=== PATIENT | male | born 1955 | race Caucasian/White ===

== ENCOUNTER 2017-08-21 12:41 | Emergency (ER) | payer MEDICAID ==
[~2017-08-21] VITALS: Ht 180.3 cm; Wt 110.1 kg
[~2017-08-21 12:41] MED LIST: ASPI-496 PO; ATOR40TA78 PO; GLIM1TAB2 PO; HYDR12.58 PO; INSU100V8 SQ; LISI-170 PO; LORA10TA3 PO; METF10002 PO
[2017-08-21] MEDS ORDERED: KETOROLAC 30 MG/1 ML ONE (13:21)
[2017-08-21] MEDS ORDERED: MORPHINE SULFATE 4 MG/ML, 1ML ONE ×2 (13:21→15:40)
[2017-08-21] MEDS ORDERED: ONDANSETRON 2MG/ML, 2ML ONE ×2 (13:22→14:23)
[2017-08-21] MEDS: MORPHINE SULFATE 4 MG/ML, 1ML IVPush PRN ×2 (13:23→15:45)
[2017-08-21] MEDS ORDERED: SODIUM CHLORIDE 0.9% 1,000ML IVBOLUS ONE (13:30)
[2017-08-21] MEDS ORDERED: ONDANSETRON 2MG/ML, 2ML IVPush ONE (13:30)
[2017-08-21] MEDS ORDERED: SODIUM CHLORIDE FLUSH 10ML SYR IVF ONE (13:30)
[2017-08-21 13:40] LABS: HEMATOCRIT 53.5 % (39.2-51.8); HEMOGLOBIN 17.5 g/dL (13.7-18.0); WHITE BLOOD COUNT 10.2 x10^3/uL (3.4-10)
[2017-08-21 13:47] LABS: ASPARTATE AMINO TRANSFERASE 83 U/L (15-37); BLOOD UREA NITROGEN 49 mg/dL (7-18)
[2017-08-21 15:45] VITALS: BP 106/73
== END 2017-08-21 16:26 | disposition home or self-care (01) ==
LOC: ED 14:36
DX: N39.0 Urinary tract infection, site not specified (principal); I10 Essential (primary) hypertension; E11.9 Type 2 diabetes mellitus without complications; F17.210 Nicotine dependence, cigarettes, uncomplicated; Z90.81 Acquired absence of spleen
CPT/HCPCS: 36415; 74176; 80053; 81001; 85025; 87077; 87086; 87186; 96361; 96374; 96375; 96376; 99285; J2405; J7030

== ENCOUNTER 2017-10-06 14:00 | Inpatient (IN) | payer MEDICAID ==
[~2017-10-06] VITALS: Ht 180.3 cm; Wt 112.1 kg
[~2017-10-06 14:00] MED LIST changes: +CETI10TA18 PO; +FLUT1BLS PO; +GABA300C10 PO; +INSU100I34 SQ-INSULIN; +IPRA12.9 PO; +LISI1TAB7 PO; +OMEG-72 PO; +TAMS-11 PO; +TRAZ50TA18 PO
[2017-10-06] MEDS ORDERED: LIDOCAINE 1%, 2ML ONE (14:42)
[2017-10-06] MEDS: LACTATED RINGERS 1,000 ML IV SCH ×2 (14:57→23:03)
[2017-10-06] MEDS ORDERED: LIDOCAINE 1%, 2ML SQ PRN (15:00)
[2017-10-06] MEDS ORDERED: PROPOFOL 10 MG/ML, 20ML ONE (15:38)
[2017-10-06] MEDS ORDERED: PHENYLEPHRINE 10 MG/ML ONE (15:41)
[2017-10-06] MEDS ORDERED: ALBUTEROL SULFATE 200 PUFFS/8.5 GR INH ONE (15:41)
[2017-10-06] MEDS ORDERED: FENTANYL PF 100 MCG/2ML ONE (15:43)
[2017-10-06] MEDS ORDERED: MIDAZOLAM 1 MG/ML, 2ML ONE (15:51)
[2017-10-06] MEDS ORDERED: EPHEDRINE 50 MG/ML, 1ML IVPush PRN (16:30)
[2017-10-06] MEDS ORDERED: OXYcodone 5 MG/5 ML ORAL.SOL UDC PO PRN (16:30)
[2017-10-06] MEDS ORDERED: HYDROcodone/APAP 7.5-325MG/15ML UDC PO PRN (16:30)
[2017-10-06] MEDS ORDERED: HYDROmorphone 1 MG/ML, 1ML IV PRN (16:30)
[2017-10-06] MEDS ORDERED: FENTANYL PF 100 MCG/2ML IV PRN (16:30)
[2017-10-06] MEDS ORDERED: LABETALOL 5MG/ML, 20ML IV PRN (16:30)
[2017-10-06] MEDS ORDERED: MEPERIDINE/PF 25MG/0.5ML IVPush PRN (16:30)
[2017-10-06] MEDS ORDERED: hydrALAzine 20 MG/ML, 1ML IV PRN (16:30)
[2017-10-06] MEDS ORDERED: ALBUTEROL SULFATE 2.5 MG/3 ML NPPB PRN (16:30)
[2017-10-06] MEDS ORDERED: PROMETHAZINE 25 MG/ML, 1ML IV PRN (16:30)
[2017-10-06] MEDS ORDERED: ALBUTEROL/IPRATROPIUM 2.5MG/0.5MG, 3 ML NPPB PRN (16:30)
[2017-10-06] MEDS ORDERED: KETOROLAC 30 MG/1 ML IV PRN (16:30)
[2017-10-06] MEDS ORDERED: ACETAMINOPHEN 325 MG TABLET PO PRN (16:30)
[2017-10-06] MEDS ORDERED: METOPROLOL 1 MG/ML, 5ML IV PRN (16:30)
[2017-10-06] MEDS ORDERED: ONDANSETRON 2MG/ML, 2ML IVPush PRN (16:30)
[2017-10-06] MEDS ORDERED: ROCURONIUM 10 MG/ML,10ML ONE (16:58)
[2017-10-06] MEDS ORDERED: ONDANSETRON 2MG/ML, 2ML ONE (16:58)
[2017-10-06] MEDS ORDERED: SUCCINYLCHOLINE 20 MG/ML, 10ML ONE (16:58)
[2017-10-06] MEDS ORDERED: DEXAMETHASONE 4 MG/ML, 1ML ONE (16:58)
[2017-10-06] MEDS ORDERED: GLYCOPYRROLATE 0.2MG/1ML, 5ML ONE (17:01)
[2017-10-06] MEDS ORDERED: NEOSTIGMINE 1 MG/ML, 10ML ONE (17:01)
[2017-10-06 19:00] VITALS: BP 128/79
[2017-10-06] MEDS: HYDROcodone/APAP 5/325 TABLET PO PRN (23:04)
[2017-10-06] MEDS ORDERED: IPRATROPIUM BROMIDE PO PRN (23:30)
[2017-10-06] MEDS ORDERED: TRAZODONE 50MG TABLET PO PRN (23:30)
[2017-10-06] MEDS ORDERED: CETIRIZINE 10 MG TABLET PO PRN (23:30)
[2017-10-06 23:43] LABS: BLOOD UREA NITROGEN 24 mg/dL (7-18)
[2017-10-06 23:53] LABS: IS PT STATUS REG ER OR PRE ER? NO
[2017-10-07 00:09] VITALS: BP 147/90
[2017-10-07] MEDS: INSULIN DETEMIR 100 UNITS/ML, PEN SQ-INSULIN SCH ×2 (01:54→20:58)
[2017-10-07 02:28] VITALS: BP 112/71
[2017-10-07] MEDS: ALBUTEROL/IPRATROPIUM 2.5MG/0.5MG, 3 ML NPPB SCH ×3 (02:44→21:00)
[2017-10-07] MEDS: HYDROcodone/APAP 5/325 TABLET PO PRN ×4 (03:25→20:58)
[2017-10-07 07:14] VITALS: BP 108/68
[2017-10-07] MEDS ORDERED: ALBUTEROL/IPRATROPIUM 2.5MG/0.5MG, 3 ML ONE (07:15)
[2017-10-07] MEDS: GLIMEPIRIDE 1 MG TABLET PO SCH ×2 (08:22→20:57)
[2017-10-07] MEDS: TAMSULOSIN 0.4 MG CAP.ER.24H PO SCH (08:23)
[2017-10-07] MEDS: HYDROCHLOROTHIAZIDE 25 MG TABLET PO SCH (08:24)
[2017-10-07] MEDS: LISINOPRIL 20 MG TABLET PO SCH (08:28)
[2017-10-07] MEDS ORDERED: ALBUTEROL/IPRATROPIUM 2.5MG/0.5MG, 3 ML NPPB SCH (09:00)
[2017-10-07] MEDS ORDERED: GABAPENTIN 300 MG CAPSULE PO SCH (09:00)
[2017-10-07] MEDS: FLUTICASONE/VILANTEROL 200-25MCG/INH INH SCH (11:35)
[2017-10-07 14:00] VITALS: BP 104/69
[2017-10-07] MEDS: GABAPENTIN 300 MG CAPSULE PO SCH ×2 (15:59→20:57)
[2017-10-07] MEDS ORDERED: LACTULOSE 20 GM/30 ML UDC PO SCH (16:30)
[2017-10-07] MEDS ORDERED: BISACODYL 10 MG SUPP PR PRN (16:30)
[2017-10-07 18:41] VITALS: BP 117/77
[2017-10-07] MEDS: ATORVASTATIN 40 MG TABLET PO SCH (20:57)
[2017-10-07] MEDS: DOCUSATE 100 MG CAPSULE PO SCH (20:58)
[2017-10-08 00:59] VITALS: BP 118/74
[2017-10-08] MEDS: HYDROcodone/APAP 5/325 TABLET PO PRN ×4 (03:26→18:45)
[2017-10-08] MEDS: ALBUTEROL/IPRATROPIUM 2.5MG/0.5MG, 3 ML NPPB SCH ×4 (03:32→20:50)
[2017-10-08 06:31] VITALS: BP 127/79
[2017-10-08] MEDS: FLUTICASONE/VILANTEROL 200-25MCG/INH INH SCH (08:50)
[2017-10-08] MEDS: HYDROCHLOROTHIAZIDE 25 MG TABLET PO SCH (08:52)
[2017-10-08] MEDS: TAMSULOSIN 0.4 MG CAP.ER.24H PO SCH (08:52)
[2017-10-08] MEDS: DOCUSATE 100 MG CAPSULE PO SCH ×2 (08:52→20:38)
[2017-10-08] MEDS: GABAPENTIN 300 MG CAPSULE PO SCH ×3 (08:52→20:38)
[2017-10-08] MEDS: GLIMEPIRIDE 1 MG TABLET PO SCH ×2 (08:52→20:38)
[2017-10-08] MEDS: POLYETHYLENE GLYCOL 17 GM PACKET PO PRN (08:53)
[2017-10-08] MEDS: LISINOPRIL 20 MG TABLET PO SCH (08:53)
[2017-10-08 09:21] LABS: HEMATOCRIT 44.2 % (39.2-51.8); HEMOGLOBIN 14.7 g/dL (13.7-18.0); WHITE BLOOD COUNT 12.3 x10^3/uL (3.4-10)
[2017-10-08 09:32] LABS: BLOOD UREA NITROGEN 28 mg/dL (7-18)
[2017-10-08] MEDS ORDERED: CEFD300C37 PO (11:42)
[2017-10-08] MEDS ORDERED: AZIT250T89 PO (11:44)
[2017-10-08 12:41] VITALS: BP 115/76
[2017-10-08] MEDS: AZITHROMYCIN 500 MG in SODIUM CHLORIDE 0.9% 250 ML IV SCH (14:15)
[2017-10-08] MEDS: SODIUM CHLORIDE 0.9% 1,000 ML IV SCH (14:15)
[2017-10-08] MEDS: CEFTRIAXONE 1,000 MG in SODIUM CHLORIDE 0.9% 50 ML IV SCH (16:13)
[2017-10-08 19:49] VITALS: BP 109/72
[2017-10-08] MEDS: ATORVASTATIN 40 MG TABLET PO SCH (20:38)
[2017-10-08] MEDS: INSULIN DETEMIR 100 UNITS/ML, PEN SQ-INSULIN SCH (20:44)
[2017-10-09 00:42] VITALS: BP 144/94
[2017-10-09] MEDS: HYDROcodone/APAP 5/325 TABLET PO PRN ×2 (00:46→21:17)
[2017-10-09] MEDS: SODIUM CHLORIDE 0.9% 1,000 ML IV SCH ×3 (00:47→22:29)
[2017-10-09] MEDS ORDERED: OXYC-302 PO (01:30)
[2017-10-09] MEDS: ALBUTEROL/IPRATROPIUM 2.5MG/0.5MG, 3 ML NPPB SCH ×4 (02:15→18:45)
[2017-10-09 07:04] VITALS: BP 147/84
[2017-10-09] MEDS: TAMSULOSIN 0.4 MG CAP.ER.24H PO SCH (08:20)
[2017-10-09] MEDS: GLIMEPIRIDE 1 MG TABLET PO SCH ×2 (08:20→21:12)
[2017-10-09] MEDS: GABAPENTIN 300 MG CAPSULE PO SCH ×3 (08:20→21:12)
[2017-10-09] MEDS: HYDROCHLOROTHIAZIDE 25 MG TABLET PO SCH (08:20)
[2017-10-09] MEDS: DOCUSATE 100 MG CAPSULE PO SCH ×2 (08:20→21:12)
[2017-10-09] MEDS: LISINOPRIL 20 MG TABLET PO SCH (08:20)
[2017-10-09] MEDS: FLUTICASONE/VILANTEROL 200-25MCG/INH INH SCH (08:20)
[2017-10-09 10:19] LABS: HEMATOCRIT 44.1 % (39.2-51.8); HEMOGLOBIN 14.6 g/dL (13.7-18.0); WHITE BLOOD COUNT 12.8 x10^3/uL (3.4-10)
[2017-10-09] MEDS: POLYETHYLENE GLYCOL 17 GM PACKET PO PRN (11:09)
[2017-10-09 13:56] VITALS: BP 114/83
[2017-10-09] MEDS: AZITHROMYCIN 500 MG in SODIUM CHLORIDE 0.9% 250 ML IV SCH (14:49)
[2017-10-09] MEDS ORDERED: ACETAMINOPHEN 325 MG TABLET PO PRN ×2 (15:00→20:00)
[2017-10-09] MEDS ORDERED: ACETAMINOPHEN 325 MG TABLET ONE ×2 (15:00)
[2017-10-09] MEDS ORDERED: ALBUTEROL/IPRATROPIUM 2.5MG/0.5MG, 3 ML NPPB PRN ×2 (15:30→20:00)
[2017-10-09] MEDS: CEFTRIAXONE 1,000 MG in SODIUM CHLORIDE 0.9% 50 ML IV SCH (15:54)
[2017-10-09 18:37] VITALS: BP 95/63
[2017-10-09] MEDS ORDERED: ALBUTEROL/IPRATROPIUM 2.5MG/0.5MG, 3 ML NPPB SCH (19:00)
[2017-10-09] MEDS ORDERED: CETIRIZINE 10 MG TABLET PO PRN (20:00)
[2017-10-09] MEDS ORDERED: TRAZODONE 50MG TABLET PO PRN (20:00)
[2017-10-09] MEDS: INSULIN DETEMIR 100 UNITS/ML, PEN SQ-INSULIN SCH (21:00)
[2017-10-09] MEDS: ATORVASTATIN 40 MG TABLET PO SCH (21:12)
[2017-10-10 00:03] VITALS: BP 99/68
[2017-10-10 06:44] VITALS: BP 136/84
[2017-10-10] MEDS: ALBUTEROL/IPRATROPIUM 2.5MG/0.5MG, 3 ML NPPB SCH ×4 (07:00→20:10)
[2017-10-10] MEDS ORDERED: ALBUTEROL/IPRATROPIUM 2.5MG/0.5MG, 3 ML NPPB SCH (07:00)
[2017-10-10 07:27] LABS: HEMOGLOBIN 13.9 g/dL (13.7-18.0); WHITE BLOOD COUNT 13.4 x10^3/uL (3.4-10)
[2017-10-10 07:35] LABS: BLOOD UREA NITROGEN 19 mg/dL (7-18)
[2017-10-10] MEDS ORDERED: OMNIPAQUE 350 MG/ML, 100ML BOTTLE ONE (08:20)
[2017-10-10] MEDS: FLUTICASONE/VILANTEROL 200-25MCG/INH INH SCH (09:04)
[2017-10-10] MEDS: DOCUSATE 100 MG CAPSULE PO SCH ×2 (09:04→20:53)
[2017-10-10] MEDS: GABAPENTIN 300 MG CAPSULE PO SCH ×3 (09:04→20:52)
[2017-10-10] MEDS: SODIUM CHLORIDE 0.9% 1,000 ML IV SCH (09:04)
[2017-10-10] MEDS: TAMSULOSIN 0.4 MG CAP.ER.24H PO SCH (09:05)
[2017-10-10] MEDS: LISINOPRIL 20 MG TABLET PO SCH (09:05)
[2017-10-10] MEDS: GLIMEPIRIDE 1 MG TABLET PO SCH ×2 (09:05→20:53)
[2017-10-10] MEDS: HYDROCHLOROTHIAZIDE 25 MG TABLET PO SCH (09:05)
[2017-10-10] MEDS: POLYETHYLENE GLYCOL 17 GM PACKET PO PRN (09:06)
[2017-10-10] MEDS: methylPREDNISolone SOD SUCC 125 MG/2 ML IVPush SCH ×2 (11:21→18:44)
[2017-10-10] MEDS: GUAIFENESIN ER 600 MG TABLET PO SCH ×2 (11:21→20:52)
[2017-10-10] MEDS: HYDROcodone/APAP 5/325 TABLET PO PRN ×2 (11:21→20:10)
[2017-10-10] MEDS: MEROPENEM 1 GM in SODIUM CHLORIDE 0.9% 100 ML IV SCH ×2 (11:40→20:11)
[2017-10-10 13:35] VITALS: BP 96/66
[2017-10-10] MEDS: AZITHROMYCIN 500 MG in SODIUM CHLORIDE 0.9% 250 ML IV SCH (14:39)
[2017-10-10] MEDS ORDERED: CEFTRIAXONE PMX 1GM/50ML 50 ML IV SCH (16:00)
[2017-10-10 19:04] VITALS: BP 107/73
[2017-10-10] MEDS: ATORVASTATIN 40 MG TABLET PO SCH (20:53)
[2017-10-10] MEDS: INSULIN DETEMIR 100 UNITS/ML, PEN SQ-INSULIN SCH (21:04)
[2017-10-11 02:10] VITALS: BP 112/77
[2017-10-11] MEDS: HYDROcodone/APAP 5/325 TABLET PO PRN ×5 (02:14→23:02)
[2017-10-11] MEDS: methylPREDNISolone SOD SUCC 125 MG/2 ML IVPush SCH ×3 (02:57→18:36)
[2017-10-11] MEDS: MEROPENEM 1 GM in SODIUM CHLORIDE 0.9% 100 ML IV SCH ×3 (02:57→19:36)
[2017-10-11 06:47] VITALS: BP 98/64
[2017-10-11] MEDS: ALBUTEROL/IPRATROPIUM 2.5MG/0.5MG, 3 ML NPPB SCH ×4 (08:33→20:00)
[2017-10-11 08:45] VITALS: BP 112/76
[2017-10-11] MEDS: GABAPENTIN 300 MG CAPSULE PO SCH ×3 (08:55→20:37)
[2017-10-11] MEDS: GLIMEPIRIDE 1 MG TABLET PO SCH ×2 (08:55→20:37)
[2017-10-11] MEDS: TAMSULOSIN 0.4 MG CAP.ER.24H PO SCH (08:55)
[2017-10-11] MEDS: GUAIFENESIN ER 600 MG TABLET PO SCH ×2 (08:55→20:37)
[2017-10-11] MEDS: DOCUSATE 100 MG CAPSULE PO SCH ×2 (08:55→20:37)
[2017-10-11] MEDS: FLUTICASONE/VILANTEROL 200-25MCG/INH INH SCH (08:55)
[2017-10-11] MEDS: HYDROCHLOROTHIAZIDE 25 MG TABLET PO SCH (08:55)
[2017-10-11] MEDS: LISINOPRIL 20 MG TABLET PO SCH (08:56)
[2017-10-11] MEDS: INSULIN REGULAR 100 UNITS/ML, 3ML VIAL SQ-INSULIN SCH ×3 (13:36→20:36)
[2017-10-11] MEDS: ENOXAPARIN 40 MG/0.4 ML SQ SCH (13:37)
[2017-10-11] MEDS: AZITHROMYCIN 500 MG in SODIUM CHLORIDE 0.9% 250 ML IV SCH (14:10)
[2017-10-11 14:16] VITALS: BP 101/66
[2017-10-11 20:18] VITALS: BP 108/69
[2017-10-11] MEDS: INSULIN DETEMIR 100 UNITS/ML, PEN SQ-INSULIN SCH (20:36)
[2017-10-11] MEDS: ATORVASTATIN 40 MG TABLET PO SCH (20:37)
[2017-10-12] MEDS: methylPREDNISolone SOD SUCC 125 MG/2 ML IVPush SCH ×2 (03:16→11:21)
[2017-10-12] MEDS: MEROPENEM 1 GM in SODIUM CHLORIDE 0.9% 100 ML IV SCH ×3 (03:19→19:40)
[2017-10-12 03:58] VITALS: BP 107/68
[2017-10-12 05:39] LABS: HEMATOCRIT 40.7 % (39.2-51.8); HEMOGLOBIN 13.5 g/dL (13.7-18.0)
[2017-10-12 06:03] LABS: BLOOD UREA NITROGEN 38 mg/dL (7-18)
[2017-10-12] MEDS: ALBUTEROL/IPRATROPIUM 2.5MG/0.5MG, 3 ML NPPB SCH ×4 (07:38→18:54)
[2017-10-12 07:58] VITALS: BP 106/70
[2017-10-12] MEDS: INSULIN REGULAR 100 UNITS/ML, 3ML VIAL SQ-INSULIN SCH ×4 (08:12→21:44)
[2017-10-12] MEDS: FLUTICASONE/VILANTEROL 200-25MCG/INH INH SCH (08:12)
[2017-10-12] MEDS: GABAPENTIN 300 MG CAPSULE PO SCH ×3 (08:13→21:42)
[2017-10-12] MEDS: GUAIFENESIN ER 600 MG TABLET PO SCH ×2 (08:13→21:42)
[2017-10-12] MEDS: DOCUSATE 100 MG CAPSULE PO SCH ×2 (08:13→21:43)
[2017-10-12] MEDS: HYDROCHLOROTHIAZIDE 25 MG TABLET PO SCH (08:14)
[2017-10-12] MEDS: GLIMEPIRIDE 1 MG TABLET PO SCH ×2 (08:14→21:43)
[2017-10-12] MEDS: TAMSULOSIN 0.4 MG CAP.ER.24H PO SCH (08:14)
[2017-10-12] MEDS: LISINOPRIL 20 MG TABLET PO SCH (08:14)
[2017-10-12] MEDS: ENOXAPARIN 40 MG/0.4 ML SQ SCH (11:23)
[2017-10-12] MEDS: HYDROcodone/APAP 5/325 TABLET PO PRN ×3 (11:36→21:43)
[2017-10-12] MEDS: AZITHROMYCIN 500 MG in SODIUM CHLORIDE 0.9% 250 ML IV SCH (14:55)
[2017-10-12] MEDS: SODIUM CHLORIDE 0.9% 1,000 ML IV SCH (14:56)
[2017-10-12 15:44] VITALS: BP 125/84
[2017-10-12] MEDS ORDERED: INSULIN REGULAR 100 UNITS/ML, 3ML VIAL IVPush ONE (18:00)
[2017-10-12] MEDS ORDERED: INSULIN REGULAR 100 UNITS/ML, 3ML VIAL SQ-INSULIN ONE (18:00)
[2017-10-12 19:38] VITALS: BP 116/74
[2017-10-12] MEDS: ATORVASTATIN 40 MG TABLET PO SCH (21:42)
[2017-10-12] MEDS: INSULIN DETEMIR 100 UNITS/ML, PEN SQ-INSULIN SCH (21:44)
[2017-10-12] MEDS: methylPREDNISolone SOD SUCC 40 MG/ML IVPush SCH (21:50)
[2017-10-13] MEDS: SODIUM CHLORIDE 0.9% 1,000 ML IV SCH (01:35)
[2017-10-13] MEDS: HYDROcodone/APAP 5/325 TABLET PO PRN ×2 (02:08→11:23)
[2017-10-13 03:23] VITALS: BP 112/80
[2017-10-13] MEDS: MEROPENEM 1 GM in SODIUM CHLORIDE 0.9% 100 ML IV SCH ×2 (03:47→11:11)
[2017-10-13 05:27] LABS: BLOOD UREA NITROGEN 36 mg/dL (7-18)
[2017-10-13] MEDS: ALBUTEROL/IPRATROPIUM 2.5MG/0.5MG, 3 ML NPPB SCH ×2 (07:18→10:58)
[2017-10-13 07:30] VITALS: BP 116/79
[2017-10-13] MEDS: INSULIN REGULAR 100 UNITS/ML, 3ML VIAL SQ-INSULIN SCH ×2 (07:50→11:15)
[2017-10-13] MEDS: methylPREDNISolone SOD SUCC 40 MG/ML IVPush SCH (08:40)
[2017-10-13] MEDS: FLUTICASONE/VILANTEROL 200-25MCG/INH INH SCH (08:40)
[2017-10-13] MEDS: GLIMEPIRIDE 1 MG TABLET PO SCH (08:41)
[2017-10-13] MEDS: GUAIFENESIN ER 600 MG TABLET PO SCH (08:41)
[2017-10-13] MEDS: DOCUSATE 100 MG CAPSULE PO SCH (08:41)
[2017-10-13] MEDS: TAMSULOSIN 0.4 MG CAP.ER.24H PO SCH (08:41)
[2017-10-13] MEDS: HYDROCHLOROTHIAZIDE 25 MG TABLET PO SCH (08:41)
[2017-10-13] MEDS: GABAPENTIN 300 MG CAPSULE PO SCH (08:42)
[2017-10-13] MEDS: LISINOPRIL 20 MG TABLET PO SCH (08:42)
[2017-10-13] MEDS ORDERED: LEVO750T6 PO (10:36)
[2017-10-13] MEDS: ENOXAPARIN 40 MG/0.4 ML SQ SCH (11:15)
[2017-10-13 12:57] VITALS: BP 122/87
[2017-10-22 10:17] LABS: CA OXALATE MONOHYDRATE 97 % (.); URINARY CALCULI COLOR Brown (.)
== END 2017-10-13 14:06 | disposition home or self-care (01) | DRG 659 ==
LOC: OR 14:00 → 4NOR 18:28 → OR 21:43 → DCLOUNGE 10-13 13:58
PROVIDERS: ADMIT Urology; ATTEND Urology
PROC: 0TC03ZZ Extirpation of Matter from Right Kidney, Percutaneous Approach (ICD-10-PCS; principal; 2017-10-06 15:30)
DX: N20.0 Calculus of kidney (principal); J18.9 Pneumonia, unspecified organism; R57.9 Shock, unspecified; J96.11 Chronic respiratory failure with hypoxia; J84.10 Pulmonary fibrosis, unspecified; Z99.81 Dependence on supplemental oxygen; J44.0 Chronic obstructive pulmonary disease with (acute) lower respiratory infection; D72.829 Elevated white blood cell count, unspecified; E11.9 Type 2 diabetes mellitus without complications; E66.9 Obesity, unspecified; E78.5 Hyperlipidemia, unspecified; Z68.34 Body mass index [BMI] 34.0-34.9, adult; Z88.6 Allergy status to analgesic agent; Z88.8 Allergy status to other drugs, medicaments and biological substances; I10 Essential (primary) hypertension; K59.00 Constipation, unspecified; T38.0X5A Adverse effect of glucocorticoids and synthetic analogues, initial encounter; Z79.4 Long term (current) use of insulin; Z79.899 Other long term (current) drug therapy; Z87.891 Personal history of nicotine dependence
CPT/HCPCS: 36415; 71010; 71020; 71275; 74000; 80048; 82360; 82947; 82962; 83036; 84145; 84484; 85025; 87040; 87070; 87205; 88300; 93005; 93306; 94640; J0456; J1100; J1650; J1815; J2185; J2250; J2405; J2550; J2704; J2710; J3010; J3490; J7620; Q9967; J0330; J2370; J2920; J2930; J7030; J7050; J7120

== ENCOUNTER 2021-01-08 12:40 | Outpatient (CLI) | payer MEDICARE, MEDICAID ==
[~2021-01-08 12:40] MED LIST changes: +AZIT250T89 PO; +CEFD300C37 PO; -GLIM1TAB2 PO; +GLIM1TAB7 PO; -HYDR12.58 PO; +HYDROCHLOROTH12.5 MG PO; +LEVO750T6 PO; +LISI1TAB20 PO; -LISI1TAB7 PO; +LORA-247 PO; -LORA10TA3 PO; +METF10007 PO; +OXYC1TAB14 PO; -TRAZ50TA18 PO; +TRAZ50TA66 PO
[2021-01-08] MEDS ORDERED: OMNIPAQUE 350 MG/ML, 100ML BOTTLE ONE (16:04)
[2021-01-13] MEDS ORDERED: GABA600T7 PO ×2 (12:18)
[2021-01-13] MEDS ORDERED: OMEG1CAP6 PO (12:18)
[2021-01-13] MEDS ORDERED: LOSA100T14 PO (12:21)
[2021-01-13] MEDS ORDERED: FURO20TA3 PO (12:22)
[2021-01-13] MEDS ORDERED: Potassium Chloride PO (12:22)
== END 2021-01-08 23:59 | disposition home or self-care (01) ==
LOC: CFH 12:40
PROVIDERS: ATTEND Internal Medicine Clinical Cardiac Electrophysiology
DX: Z20.822 Contact with and (suspected) exposure to COVID-19 (principal); I48.19 Other persistent atrial fibrillation; I25.10 Atherosclerotic heart disease of native coronary artery without angina pectoris
CPT/HCPCS: 71046; 75572; 87635; Q9967